=== PATIENT | male | born 1995 | race Caucasian/White ===

== ENCOUNTER 2018-11-28 05:53 | Emergency (ER) | payer OTHER ==
[2018-11-28] MEDS ORDERED: IBUPROFEN 600 MG TABLET (FP) PO ONE ×2 (06:35→06:49)
[2018-11-28] MEDS ORDERED: BUPIVACAINE HCL/PF (5 MG/ML) 30 ML VIAL IJ ONE (06:36)
[2018-11-28] MEDS ORDERED: BUPIVACAINE HCL/PF 0.5% (5MG/ML) 10 ML VIAL ONE (06:37)
[2018-11-28] MEDS ORDERED: LIDOCAINE HCL 1%, 10 MG/ML (50 mL VIAL) SQ ONE (06:38)
[2018-11-28 06:39] VITALS: BP 118/85; PULSE 84; TEMP 98.5; BMI 33.7
--- NOTE | 2018-11-28 07:10 | PDOC ---
Documentation entered by Michael Shah SCRIBE, acting as scribe for Shahrzad Mello MD. Shahrzad Mello MD: This documentation has been prepared by the Alyssa davis Nirvannie, SCRIBE, under my direction and personally reviewed by me in its entirety. I confirm that the documentation accurately reflects all work, treatment, procedures, and medical decision making performed by me. History of Present Illness - General Chief Complaint: Toothache Stated Complaint: TOOTHACHE Time Seen by Provider: 11/28/18 06:21 History Source: Patient Exam Limitations: No Limitations - History of Present Illness Initial Comments: 11/28/18 06:54 HPI: 23YOM with no significant past medical history presenting with left upper and lower tooth pain x 1 week. Patient notes he needs a root canal but, cannot afford it. He has an appointment with his dentist today at 1pm but, his pain has persisted despite using Ibuprofen and Acetaminophen, prompting his arrival to the ED. Denies fever, chills, bonilla, dizziness. no trismus or difficulty swallowing, cp or sob. no paresthesias, weakness. no trauma. Allergies: None Past Medical History: None. Social history: Lives with family. No tobacco, ETOH or drug use. Surgical history: None reported. Meds: as documented in EMR PMD: None. ROS General Medical: GENERAL/CONSTITUTIONAL: No fever or chills. No weakness. no sweats. HEAD, EYES, EARS, NOSE AND THROAT: No change in vision or hearing. No ear pain or discharge. No sore throat. +Left mouth pain. No difficulty swallowing. No congestion. +toothache CARDIOVASCULAR: No chest pain RESPIRATORY: No SOB GASTROINTESTINAL No nausea/vomiting. no Abdominal pain. MUSCULOSKELETAL: no neck pain SKIN: No rash or changes in skin color or lesions. No wounds. NEUROLOGIC: alert and oriented appropriately No headache, dizziness, loss of consciousness, or change in strength/sensation. HEMATOLOGIC/LYMPHATIC: No swollen lymph nodes ALLERGIC/IMMUNOLOGIC: No allergies All other systems reviewed and negative, or as documented in HPI. Physical exam: General: Well appearing, awake and alert, NAD. HEENT: NCAT, PERRL, EOMI, clear conjunctiva, anicteric, moist mucus membranes, clear oropharynx. +Cracked tooth #16, tender to percussion #16-17. no bleeding gums, no palp abscess, no trismus. normal phonation Neck: neck supple, FROM, no stiffness Resp: normal and even respirations, no respiratory distress CVS: 2+ peripheral pulses throughout, no peripheral edema Abdomen: soft, nontender Back: nontender, normal inspection and ROM MSK: no edema, CARTAGENA x4 Neuro: alert, oriented appropriately; no focal neurologic deficits, CN II-XII grossly intact, with CN V intact. Skin: warm and well perfused, cap refill <2 sec, normal color 11/28/18 07:04 11/28/18 07:09 Past History - Past Medical History Allergies/Adverse Reactions: Allergies Allergy/AdvReac Type Severity Reaction Status Date / Time No Known Allergies Allergy Verified 11/28/18 06:32 Home Medications: Ambulatory Orders Ibuprofen [Motrin -] 600 mg PO QID PRN #30 tablet 06/12/16 Ibuprofen 600 mg PO QID PRN #20 tablet 11/28/18 Oxycodone HCl 10 mg PO QID PRN #6 tablet MDD 4 11/28/18 - Suicide/Smoking/Psychosocial Hx Smoking History: Never smoked Have you smoked in the past 12 months: No Number of Cigarettes Smoked Daily: 10 Information on smoking cessation initiated: No Hx Alcohol Use: No Drug/Substance Use Hx: No Substance Use Type: None *Physical Exam - Vital Signs Last Vital Signs Temp Pulse Resp BP Pulse Ox 98.5 F 84 16 118/85 99 11/28/18 05:53 11/28/18 05:53 11/28/18 05:53 11/28/18 05:53 11/28/18 05:53 Procedures - Additional Procedures Additional Procedures: other Progress: 11/28/18 07:07 DENTAL BLOCK: indication - dental pain. 1% lido and 0.5% marcaine mixed, 10cc total, 5cc each to left infraorbital and left inferior alveolar block. Aspiration without blood. Injected 5cc to each location with good effect and analgesia. No bleeding complications. ED Treatment Course - Medications Given in the ED: ED Medications Discontinued Medications Generic Name Dose Route Start Last Admin Trade Name Freq PRN Reason Stop Dose Admin Bupivacaine HCl 50 mg 11/28/18 06:36 11/28/18 06:48 Bupivacaine 0.5% Vial IJ 11/28/18 06:37 50 mg ONCE ONE Administration Ibuprofen 600 mg 11/28/18 06:35 11/28/18 06:48 Motrin - PO 11/28/18 06:36 600 mg ONCE ONE Administration Lidocaine HCl 10 ml 11/28/18 06:38 11/28/18 06:48 Xylocaine 1% SQ 11/28/18 06:39 10 ml ONCE ONE Administration Medical Decision Making - Medical Decision Making 11/28/18 06:50 hpi as documented VS wnl, no fever. no airway sx, Airway, breathing and circulation intact. normal phonation. CN II to XII intact. well appearing otherwise given analgesia, proper dosing of NSAID. pt accepts dental block as documented, uncomplicated, analgesia achieved and sx much improved pt also wishes for meds for severe pain, until he sees dentist Will discharge patient with a short course of opiates. Went over the risks of the medication. Advised patient to not mix with other products containing acetaminophen, to not combine with alcohol, or other illicit drugs, to not drive or operate machinery, and to refrain from any activity that will require complete attention while taking this medication. f/u dentist today, analgesic regimen discussed. soft foods expectant management and time course for his nerve block provided, ~8-12 hours with long acting marcaine pt verbalized understanding of instructions, return precautions. 11/28/18 07:07 *DC/Admit/Observation/Transfer Diagnosis at time of Disposition: Toothache - Discharge Dispostion Disposition: HOME Condition at time of disposition: Good Decision to Admit order: No - Prescriptions Prescriptions: Ibuprofen 600 mg PO QID PRN #20 tablet PRN Reason: Pain Level 4 - 6 Oxycodone HCl 10 mg PO QID PRN #6 tablet MDD 4 PRN Reason: Pain Level 7 - 10 - Referrals Referrals: John Limon MD [Primary Care Provider] - - Patient Instructions Printed Discharge Instructions: DI for Dental Pain Additional Instructions: 1) Please follow-up with your primary care doctor in the next 1-2 days. Please call tomorrow for for any urgent issues. 2) If you have any worsening of symptoms or any other concerns please return to the ED immediately. Return if worsening symptoms including fevers, headache, vomiting, visual or hearing disturbances, abdominal pain, chest pain, shortness of breath, syncope, dehydration, inability to take things by mouth/vomiting, altered mental status, or worsening concerning symptoms. 3) Please continue taking your home medications as directed. your medications on discharge include analgesics as below. do not drink alcohol with your medications. Please take IBUPROFEN (aka MOTRIN, ADVIL, ALEVE) 400 mg to 600mg and/or ACETAMINOPHEN (aka Tylenol) 650-975 mg every 6 hours, as needed, for pain. Please do not take these medications if you have a bleeding disorder, stomach or GI ulcer problems or liver disease. Please take one tablet of OXYCODONE every 6 hours, as needed for SEVERE pain. Please do not take this medication unless you absolutely need it, it is very addictive. Please do not drive, operate heavy machinery or make important decisions while on this medication, it can cloud your judgment. Stay well hydrated and rest adequately. an appointment. If you cannot follow-up with your primary care doctor please return to the ED - Post Discharge Activity
== END 2018-11-28 07:05 | disposition home or self-care (01) ==
LOC: JER 05:53
PROC: 3E033NZ Introduction of Analgesics, Hypnotics, Sedatives into Peripheral Vein, Percutaneous Approach (ICD-10-PCS; principal; 2018-11-28)
DX: K08.89 Other specified disorders of teeth and supporting structures (principal)
CPT/HCPCS: 96372; 99281-25

== ENCOUNTER 2021-01-23 19:49 | Emergency (ER) | payer OTHER ==
[2021-01-23 20:16] VITALS: BP 99/63; PULSE 101; TEMP 98.5; BMI 33.2
[2021-01-23] MEDS ORDERED: KETOROLAC TROMETHAMINE 30 MG/1 ML VIAL IM ONE (20:32)
[2021-01-23] MEDS ORDERED: KETOROLAC TROMETHAMINE 30 MG/1 ML VIAL ONE (20:36)
== END 2021-01-23 21:16 | disposition home or self-care (01) ==
LOC: JERFT 19:49 → JER 19:49 → JERFT 21:16
PROC: 3E0233Z Introduction of Anti-inflammatory into Muscle, Percutaneous Approach (ICD-10-PCS; principal; 2021-01-23)
DX: M54.5 Low back pain (principal)
CPT/HCPCS: 99284-25

== ENCOUNTER 2021-01-25 07:52 | Emergency (ER) | payer OTHER ==
[2021-01-25 07:56] VITALS: BP 127/77; PULSE 78; TEMP 98; BMI 33.2
[2021-01-25] MEDS ORDERED: METHOCARBAMOL 500 MG TABLET PO ONE (08:15)
[2021-01-25] MEDS ORDERED: IBUPROFEN 600 MG TABLET (FP) PO ONE ×2 (08:15→08:31)
[2021-01-25] MEDS ORDERED: LIDOCAINE 5% TOPICAL PATCH TP ONE (08:15)
[2021-01-25] MEDS ORDERED: METHOCARBAMOL 500 MG TABLET ONE (08:30)
[2021-01-25] MEDS ORDERED: LIDOCAINE 5% TOPICAL PATCH ONE (08:31)
[2021-01-25] MEDS ORDERED: oxyCODONE HCL 5 MG TABLET PO ONE (08:44)
[2021-01-25] MEDS ORDERED: oxyCODONE HCL 5 MG TABLET ONE (08:49)
== END 2021-01-25 10:16 | disposition home or self-care (01) ==
LOC: JER 07:52
DX: M54.5 Low back pain (principal)
CPT/HCPCS: 72100-TC-FY; 99283-25

== ENCOUNTER 2022-06-25 16:36 | Emergency (ER) | payer OTHER ==
[2022-06-25 16:42] VITALS: BP 107/69; PULSE 70; RESP 18; TEMP 98; BMI 28.7
[2022-06-25 18:24] LABS: BASO % 0.4 % (0-2.0); EOS % 1.2 % (0-4.5); HEMATOCRIT 45.7 % (35.4-49); HEMOGLOBIN 15.9 GM/dL (11.7-16.9); LYMPH % 32.3 % (8-40); MCH 31.5 pg (25.7-33.7); MCHC 34.9 g/dl (32.0-35.9); MEAN CELL VOLUME 90.2 fl (80-96); MEAN PLT VOLUME 7.4 fl (7.5-11.1); MONO % 7.6 % (3.8-10.2); NEUT % 58.5 % (42.8-82.8); PLATELET COUNT 334 10^3/uL (134-434); RBC 5.06 M/mm3 (4.00-5.60); RDW 13.1 % (11.9-15.9); WHITE BLOOD COUNT 8.5 K/mm3 (4.0-10.0)
[2022-06-25 18:49] LABS: INR 1.09 (0.83-1.09); PROTHROMBIN TIME (PATIENT) 12.6 SEC (9.7-13.0)
[2022-06-25 18:50] LABS: BLOOD UREA NITROGEN 11.9 mg/dL (7-18); CALCIUM 9.4 mg/dL (8.5-10.1)
[2022-06-25 18:54] LABS: CREATININE 0.8 mg/dL (0.55-1.3)
[2022-06-25] MEDS ORDERED: ACETAMINOPHEN 1000 MG/100 ML BAG IVPB ONE (20:40)
[2022-06-25] MEDS ORDERED: ACETAMINOPHEN 500 MG TABLET (FP) PO ONE (21:01)
[2022-06-25] MEDS ORDERED: ACETAMINOPHEN 325 MG TABLET (FP) ONE (21:05)
== END 2022-06-25 21:08 | disposition home or self-care (01) ==
LOC: JERFT 16:36
DX: K64.9 Unspecified hemorrhoids (principal)
CPT/HCPCS: 36415; 72193-TC; 80048; 85025; 85610; 99285-25; Q9967